=== PATIENT | female | born 1950 | race Caucasian/White ===

== ENCOUNTER 2020-11-17 13:43 | Outpatient (CLI) | payer OTHER | END 2020-11-17 13:50 | disposition home or self-care (01) | LOC: RAD 13:43 | PROVIDERS: ATTEND Orthopaedic Surgery | DX: M54.5 Low back pain (principal); M25.551 Pain in right hip; M25.552 Pain in left hip ==

== ENCOUNTER 2020-11-20 14:05 | Outpatient (CLI) | payer OTHER | END 2020-11-20 14:06 | disposition home or self-care (01) | LOC: NUCLEAR 14:05 | PROVIDERS: ATTEND Orthopaedic Surgery | DX: M81.0 Age-related osteoporosis without current pathological fracture (principal) ==

== ENCOUNTER → 2020-12-28 08:21 | Outpatient (CLI) | payer OTHER | END | disposition home or self-care (01) | LOC: LAB 08:21 | PROVIDERS: ATTEND Orthopaedic Surgery | DX: M85.88 Other specified disorders of bone density and structure, other site (principal); E56.1 Deficiency of vitamin K; E55.9 Vitamin D deficiency, unspecified ==